=== PATIENT | male | born 1970 | race Caucasian/White ===

== ENCOUNTER → 2017-01-03 | Outpatient (CLI) | payer BC ==
[~2017-01-03] VITALS: Ht 165.1 cm; Wt 78.5 kg
[~2017-01-03] MED LIST: ADVIL,NUPRIN,M200 MG PO; ASPIR-LOW81 MG PO; ASPIRIN81 M2 PO; CARAFATE1 GM PO; FLONASE ALLERG9.9 ML BOTH NARES; LAMISIL250 MG PO; LISINOPRIL-HCT1 EACH PO; LISINOPRIL10 MG PO; NAPROSYN375 MG PO; NAPROSYN500 MG PO; NICOTINE PATCH1 EAC2 TD; NORCO 7.5/321 TABLET PO; OMEPRAZOLE40 M1 PO; PEPCID20 MG PO
== END | disposition home or self-care (01) ==
LOC: AMB 13:57
DX: K22.70 Barrett's esophagus without dysplasia (principal); K29.70 Gastritis, unspecified, without bleeding; I10 Essential (primary) hypertension; G47.30 Sleep apnea, unspecified; Z82.49 Family history of ischemic heart disease and other diseases of the circulatory system; Z81.1 Family history of alcohol abuse and dependence; F17.200 Nicotine dependence, unspecified, uncomplicated
CPT/HCPCS: 88305; 88342 TC

== ENCOUNTER 2017-03-12 12:11 | Emergency (ER) | payer BC ==
[~2017-03-12] VITALS: Ht 167.6 cm; Wt 78.4 kg
[2017-03-12 14:28] LABS: HEMATOCRIT 45.5 % (38.0-50.0); MCH 30.8 PG (29.0-34.0); MCHC 34.9 G/DL (30.0-36.0); MCV 88.2 FL (86-99); MEAN PLAT.VOLUME 10.5 uM^3 (9.0-12.4); PLATELET COUNT 206 K/uL (156-360); RBC DIS.WIDTH-CV 12.2 % (11.8-14.6); RBC DIS.WIDTH-SD 39.8 % (39-53); RED BLOOD COUNT 5.16 M/uL (4.00-5.50); WHITE BLOOD COUNT 7.1 K/uL (4.1-10.2)
[2017-03-12 14:38] LABS: CHLORIDE 106 mEq/L (99-109); POTASSIUM 3.9 mEq/L (3.7-5.4); SODIUM 140 mEq/L (136-147)
[2017-03-12 14:41] LABS: GLUCOSE 95 mg/dL (70-99)
[2017-03-12 14:42] LABS: ANION GAP 7 MEQ/L (2-14)
[2017-03-12 14:43] LABS: TOTAL BILIRUBIN 0.7 mg/dL (0.0-1.0)
[2017-03-12 14:44] LABS: ALKALINE PHOSPHATASE 68 IU/L (3-129); GFR ESTIMATE (CALCULATED) > 59 mL/min/
[2017-03-12 14:46] LABS: UREA NITROGEN (BUN) 21 mg/dL (9-23)
[2017-03-12 15:52] VITALS: BP 119/63
== END 2017-03-12 15:53 | disposition home or self-care (01) ==
LOC: EME 12:11
PROVIDERS: Nurse Practitioner Family
DX: M54.5 Low back pain (principal); I10 Essential (primary) hypertension; K21.9 Gastro-esophageal reflux disease without esophagitis; Z87.891 Personal history of nicotine dependence
CPT/HCPCS: 72100; 72131; 80053; 85027; 99281; 99285; J1885; J7512

== ENCOUNTER 2017-03-14 23:57 | Emergency (ER) | payer BC ==
[~2017-03-14] VITALS: Ht 165.1 cm; Wt 81.0 kg
[2017-03-15 01:17] LABS: ADD MIUA? NO; BILIRUBIN NEGATIVE; BLOOD NEGATIVE; COLOR YELLOW ((YELLOW)); GLUCOSE (STRIP) NEGATIVE; KETONES NEGATIVE; LEUKOCYTES NEGATIVE; NITRITE NEGATIVE; PROTEIN (STRIP) NEGATIVE; SPECIFIC GRAVITY 1.016 (1.000-1.030); UCUL ADDED? NO; UROBILINOGEN 0.2 MG/DL (0.2-1.0)
[2017-03-15] MEDS ORDERED: PERCOCET 5/31 TABLET PO (01:52)
[2017-03-15] MEDS ORDERED: MEDROL DOSEPAK4 MG PO (01:52)
[2017-03-15 02:03] VITALS: BP 117/70
== END 2017-03-15 02:24 | disposition home or self-care (01) ==
LOC: EME → EDBD 23:57 → EME 03-15 02:24
PROVIDERS: Emergency Medicine
DX: M54.16 Radiculopathy, lumbar region (principal); X50.0XXA Overexertion from strenuous movement or load, initial encounter; I10 Essential (primary) hypertension; Z87.891 Personal history of nicotine dependence
CPT/HCPCS: 81003; 99281; 99284; J1100

== ENCOUNTER 2017-05-14 00:16 | Emergency (ER) | payer BC ==
[~2017-05-14] VITALS: Ht 167.6 cm; Wt 83.1 kg
[~2017-05-14 00:16] MED LIST changes: +MEDROL DOSEPAK4 MG PO; +PERCOCET 5/31 TABLET PO
[2017-05-14 03:27] VITALS: BP 135/89
== END 2017-05-14 02:10 | disposition home or self-care (01) ==
LOC: EME → EDBD 00:16 → EME 02:10
DX: F32.9 Major depressive disorder, single episode, unspecified (principal); I10 Essential (primary) hypertension; K21.9 Gastro-esophageal reflux disease without esophagitis; Z79.82 Long term (current) use of aspirin; Z87.891 Personal history of nicotine dependence
CPT/HCPCS: 90837; 99281; 99285

== ENCOUNTER → 2017-08-01 | Outpatient (CLI) | payer BC, OTHER | END | disposition home or self-care (01) | LOC: MRI 10:47 → RAD 11:00 → MRI 11:00 | DX: M51.35 Other intervertebral disc degeneration, thoracolumbar region (principal) | CPT/HCPCS: 72148 ==